=== PATIENT | female | born 1975 | race Caucasian/White ===

== ENCOUNTER 2020-02-12 16:03 | Emergency (ER) | payer OTHER ==
[~2020-02-12] VITALS: Ht 160 cm; Wt 57.6 kg
== END 2020-02-12 20:36 | disposition home or self-care (01) ==
LOC: ER 16:03
DX: Q28.2 Arteriovenous malformation of cerebral vessels (principal); R55 Syncope and collapse; Z03.818 Encounter for observation for suspected exposure to other biological agents ruled out

== ENCOUNTER → 2020-05-25 | Emergency (ER) | payer OTHER | END | disposition left against medical advice (07) | LOC: ER 15:22 | DX: Z53.20 Procedure and treatment not carried out because of patient's decision for unspecified reasons (principal) ==

== ENCOUNTER 2020-06-27 17:59 | Emergency (ER) | payer OTHER ==
[~2020-06-27] VITALS: Ht 160 cm; Wt 57.6 kg
== END 2020-06-27 20:44 | disposition home or self-care (01) ==
LOC: ER 17:59
DX: S43.52XA Sprain of left acromioclavicular joint, initial encounter (principal); S43.422A Sprain of left rotator cuff capsule, initial encounter; M75.32 Calcific tendinitis of left shoulder; X50.0XXA Overexertion from strenuous movement or load, initial encounter; Y93.F2 Activity, caregiving, lifting; Y92.89 Other specified places as the place of occurrence of the external cause; Y99.8 Other external cause status